=== PATIENT | male | born 1950 | race Caucasian/White ===

== ENCOUNTER 2024-10-18 21:53 | Emergency (ER) | payer OTHER, MEDICARE, SELFPAY ==
--- OUTSIDE RECORDS SUMMARY | 2017-12-03 12:00 | XMS_ITS | Continuity of Care Document ---
Author Organization [facility] Address [address] [place] [address] Phone Care Team Providers Care Photographic Engineer Name Role Phone Giacomo Sparrow MD Unavailable Unavailable Allergies, Adverse Reactions, Alerts Substance Reaction Status Criticality amoxicillin Rash Active No Information Medications Medication Instructions Dosage Effective Dates (start - stop) Status Comments warfarin 5 mg tablet take 1 tablet by or al route every day 5 MG - Active atorvastatin 20 mg tablet take 1 tablet by oral route every day 20 MG - Active metoprolol succinate ER 50 mg tablet,extended release 24 hr take 1 Tablet by oral route 2 times every day 50 MG - Active Procedures Procedure Date Office/Outpatient visit, established pat ient Office/Outpatient visit, established pat ient Betamethasone acet&sod phosp Arthrocentesis, aspiration and/or inject ion; intermediate joint or bursa Office/Outpatient visit, established pat ient Arthrocentesis, aspiration and/or inject ion; intermediate joint or bursa Office/Outpatient visit, established pat ient Office/Outpatient visit, established pat ient Office/Outpatient visit, new patient June Advance Directives Directive Yes / No Effective Date File Name No Information Encounters Encounter Description Practice Location Reason(s) For Visit Diagnoses Date Provider Providers Copied on Encounter Office/Outpat ient visit, established patient [facility] , [address], [place], [id number], [place] tel:[phone] [facility] Carpal tunnel syndrome, right upper limbCarpal tunnel syndrome, left upper limb 8 Kyara Giacomo. [address], [place], [id number], [place]. tel:[phone] Referring Provider: Jo-Ann Begum, [address] [place], [address] . tel:[phone] Office/Outpat ient visit, established patient [facility] , [address], [place], [id number], [place] tel:[phone] [facility] hand pain equally on both sides (chief complaint) Carpal tunnel syndrome, right upper limbCarpal tunnel syndrome, left upper limbCarpal tunnel syndrome, bilateral upper limbs 8 Kyara Giacomo. [address], [place], [id number], [place]. tel:[phone] Referring Provider: Jo-Ann Begum, [address] [place], [address] . tel:[phone] Office/Outpat ient visit, established patient [facility] , [address], [place], [id number], [place] tel:[phone] [facility] hand pain equally on both sides (chief complaint) left elbow pain (chief complaint) Carpal tunnel syndrome, left upper limbCarpal tunnel syndrome, right upper limbCarpal tunnel syndrome, bilateral upper limbs 8 Kyara Giacomo. [address], [place], [id number], [place]. tel:[phone] Referring Provider: Jo-Ann Begum, [address] [place], [address] . tel:[phone] Office/Outpat ient visit, established patient [facility] , [address], [place], [id number], [place] tel:[phone] [facility] hand pain equally on both sides (chief complaint) Carpal tunnel syndrome, bilateral upper limbsLesion of ulnar nerve, bilateral upper limbs 8 Kyara Giacomo. [address], [place], [id number], [place]. tel:[phone] Referring Provider: Jo-Ann Begum, [address] [place], [address] . tel:[phone] Office/Outpat ient visit, established patient [facility] , [address], [place], [id number], [place] tel:[phone] [facility] right wrist pain (chief complaint) Carpal tunnel syndrome, left upper limbCarpal tunnel syndrome, right upper limbLesion of ulnar nerve, left upper limbLesion of ulnar nerve, right upper limbCarpal tunnel syndrome, bilateral upper limbsLesion of ulnar nerve, bilateral upper limbs 8 Kyara Giacomo. [address], [place], [id number], [place]. tel:[phone] Referring Provider: Jo-Ann Begum, [address] [place], [address] . tel:[phone] Office/Outpat ient visit, new patient [facility] , [address], [place], [id number], [place] tel:[phone] [facility] Carpal Tunnel SyndromeCubital tunnel syndrome 5 Kyara Giacomo. [address], [place], [id number], [place]. tel:[phone] Referring Provider: Jo-Ann Begum, [address] [place], [address] . tel:[phone] Family History Family Member Type Diagnosis Age At Onset Mother Problem (finding) Diabetes Payers Payer name Insurance type Covered green party ID Oren gaxiola) Jimbo DASH [id number] Social History Type Description Quantity Date Captured Comments Alcohol Use Details No Caffeine Use Details coffee 2 cups per day Tobacco Use Status Never smoked tobacco 2017 Smoking Status Never smoker Sex Male Vital Signs Date / Time: Height Weight BMI Pulse Rate Blood Pressure Temperature Respiratory Rate Body Surface Area Head Circumference Head Circ. Percentile Wt./Philip. Percentile BMI percentile Pulse Ox Inhaled Ox 5:45 PM 67.00 in 83.915 kg (185.00 lbs) 28.9 7 kg/m eter (2) 60 /min 151/64 mm[Hg] Chief Complaint And Reason For Visit No Information Reason For Referral Reason For Referral No Information History Of Present Illness Encounter Date Complaint History Of Prese nt Illness hand pain equally on both sides Ronnie Holden is a 67 year old male. He presents with pain on the right and left side equally. He indicates the injury occurred at home. Ronnie states that the symptoms began as the result of repetitive motion. The symptoms occur rarely. The pain is described as stabbing and sharp. The symptoms occur at night. He rates his current pain as 0/10. The symptoms are aggravated by daily activities. Ronnie states that the symptoms are relieved by massage and rest. hand pain equally on both sides (comments) The patient comes to my office today for follow-up evaluation. He obtained a steroid injection in bilateral carpal canals during his last visit on 08/13/2017. He comes to my office today for reevaluation. He states that he continues using the splints at night and has no residual paresthesias along median or ulnar nerve distribution. hand pain equally on both sides Ronnie Holden is a 67 year old male. He presents with pain on the right and left side equally. He indicates the injury occurred at home. Ronnie states that the symptoms began as the result of repetitive motion. The symptoms occur intermittently. Currently the patient states that the symptoms are mild-moderate. The pain is described as stabbing. The symptoms occur intermittently. He rates his current pain as 2/10. The symptoms are aggravated by no specific activity. Ronnie states that the symptoms are relieved by rest and brace. left elbow pain Ronnie dodson is a 67 year old male. He presents with pain on the left side. He indicates the injury occurred at home. Ronnie states that the symptoms began as the result of repetitive motion. The symptoms occur intermittently. Currently the patient states that the symptoms are mild-moderate. The pain is described as aching and stabbing. The symptoms occur intermittently. He rates his current pain as 1/10. The symptoms are aggravated by no specific activity. Ronnie states that the symptoms are relieved by rest. hand pain equally on both sides (comments) In summary, the patient has been complaining of bilateral hand numbness and tingling along median nerve distribution. He was diagnosed with bilateral carpal tunnel syndrome. The diagnosis was confirmed with an electrodiagnostic study. The patient has been using wrist splints. He lost the left side splint but he maintains the use of the right splint. He states that his paresthesias remain worse on the left than on the right. His last electrodiagnostic study revealed mild carpal tunnel syndrome. He has episodes of pain during daytime. hand pain equally on both sides Ronnie Holden is a 67 year old male. He presents with pain on the right and left side equally. He indicates the injury occurred at home. Ronnie states that the symptoms began as the result of repetitive motion. The symptoms occur intermittently. Currently the patient states that the symptoms are moderate-severe. The pain is described as stabbing. The symptoms occur at night. He rates his current pain as 3/10. Ronnie states that the symptoms are relieved by elevation, exercise and massage. hand pain equally on both sides (comments) The patient comes to my office today for follow-up evaluation. He had been seen originally on 06/30/2014. At that time, patient was diagnosed with bilateral carpal tunnel syndrome and bilateral cubital tunnel syndrome. He was recommended to undergo conservative management and to obtain an EMG/NCS. The patient was lost to follow-up and came back for reevaluation on 05/08/2017. The patient was recommended to undergo a repeat electrodiagnostic study to assess the progression of the disease. The patient comes back to my office today with the results from the electrodiagnostic study. He states that he has been experiencing pain 3/10 he states that numbness and tingling is no longer present except for at night and not every night. He has been using his splints. right wrist pain Ronnie hamilton is a 66 year old male. He presents with pain on the right side. He indicates the injury occurred at home. Ronnie states that the symptoms began as the result of repetitive motion. The symptoms occur intermittently. Currently the patient states that the symptoms are mild-moderate. The pain is described as aching and stabbing. He rates his current pain as 3/10. The symptoms are aggravated by daily activities. Ronnie states that the symptoms are relieved by rest. right wrist pain (comments) The patient comes to my office today for follow-up evaluation. He has been seen on 06/30/2014 for complaints of bilateral hand numbness and tingling along median and ulnar nerve distribution. He was treated with splints and was recommended to undergo an EMG/NCS. The patient was lost to follow-up and comes to my office today for reevaluation. He states that he stopped using the splints after a while due to lack of improvement. Functional Status Date Functional Assessmen t No Information Instructions Date Instruction Mayco Infor norris At this time, the roxana hanna is doing well. As stated above, he has been advised to stop using the splints and he will be follow-up as needed. If there is any recurrence of symptoms, he should put the splint back on and make an appointment in my office for reevaluation. Related to Carpal tunnel syndrome, left upper limb At this time, the roxana hanna has been advised to stop the use of the wrist splints. He has been advised that if there is any recurrence of symptoms he should put the splints back on and make an appointment in my office for reevaluation. Related to Carpal tunnel syndrome, right upper limb At this point, the p atient she will continue using the splint for an additional 2 months. He will then remove the use of the splints and will have an appointment in my office 10 weeks from today. If the patient has complete resolution of symptoms, he will be able to stop using the splints and be followed as needed. However, if symptoms recur by the time he comes back to my office, the patient might require additional more aggressive treatment which might include but not be limited to surgical intervention. Details regarding surgery will be discussed with the patient if indicated. Related to Carpal tunnel syndrome, right upper limb As stated above, the patient she will continue using the splint for an additional 2 months. He will then remove the use of the splints and will have an appointment in my office 10 weeks from today. If the patient has complete resolution of symptoms, he will be able to stop using the splints and be followed as needed. However, if symptoms recur by the time he comes back to my office, the patient might require additional more aggressive treatment which might include but not be limited to surgical intervention. Details regarding surgery will be discussed with the patient if indicated. Related to Carpal tunnel syndrome, left upper limb At this time, the roxana hanna is a candidate for further conservative management to maximize his chances of recovery without surgery. He will undergo a steroid injection today in the right carpal canal and he will continue using the wrist splints. He will be followed up in 6 weeks for reassessment. Related to Carpal tunnel syndrome, right upper limb At this time, the roxana hanna's left wrist splint will be prescribed again so that he can use it at night. In addition, a steroid injection will be given today in order to maximize the patient's chances of recovery without surgical intervention. He will be followed up in 6 weeks for reassessment. Related to Carpal tunnel syndrome, left upper limb At this time, the roxana hanna will continue on the conservative management with the use of wrist splints at night. He will be follow-up in my office in 6 weeks for reassessment. Related to Carpal tunnel syndrome, bilateral upper limbs At this time, the roxana hanna will continue using the elbow sleeves. He will be follow-up in 6 weeks for reassessment. Related to Lesion of ulnar nerve, bilateral upper limbs At this point, the warren duarte will start again with conservative management and will be sent for an EMG/NCS as soon as possible. He will be followed up once the results of the nerve conduction studies are available for my review. Related to Carpal tunnel syndrome, left upper limb At this point, the p felicia will start again with conservative management and will be sent for an EMG/NCS as soon as possible. He will be followed up once the results of the nerve conduction studies are available for my review. Related to Carpal tunnel syndrome, right upper limb At this point, the p felicia will start again with conservative management and will be sent for an EMG/NCS as soon as possible. He will be followed up once the results of the nerve conduction studies are available for my review. Related to Lesion of ulnar nerve, left upper limb At this point, the p felicia will start again with conservative management and will be sent for an EMG/NCS as soon as possible. He will be followed up once the results of the nerve conduction studies are available for my review. Related to Lesion of ulnar nerve, right upper limb At this time, the roxana hanna is a candidate for surgical intervention. However, before surgery, he should undergo an EMG/NCS to determine the severity of the disease. Once the study has been completed, the patient will have an appointment in my office to go over the results and to plan surgical intervention. He will most likely require to undergo open cubital tunnel release with ulnar nerve transposition on the left side followed by occupational therapy and then the same open cubital tunnel release with ulnar nerve transposition on the right side, also followed by occupational therapy. Related to Cubital tunnel syndrome At this time, the roxana hanna requires an EMG/NCS in her to determine the severity of the disease. He is a candidate for surgical intervention, therefore, once the electrodiagnosis test has been performed, he'll be seen in my office to go over the results and schedule surgery. Once she recovers from carpal tunnel surgery, she will be able to return to his usual activities of daily living hopefully without restrictions. He has been explained that he might have residual permanent numbness along the median nerve distribution due to the chronicity of the disease. He also has been explained that the atrophic changes on the thenar eminence will not recover even with surgery. Related to Carpal Tunnel Syndrome Assessments Type Assessment Date assessment Carpal tunnel syndrome, right up per limb assessment Carpal tunnel syndrome, left upp er limb impression Right carpal tunnel syndrome by history, physical exam as well as EMG/NCS. Currently with excellent resolution with conservative management utilizing wrist splints and steroid injections. Currently with complete resolution of symptoms impression Left mild carpal maria eugenia marii syndrome by history, physical exam as well as EMG/NCS. Currently with excellent response to conservative management using steroid injection and the use of wrist splints. Now with complete resolution of symptoms Patient Care Teams Name Effective Dates (start - stop) Status Members No Information
--- OUTSIDE RECORDS SUMMARY | 2018-03-26 19:00 | XMS_ITS | Continuity of Care Document ---
Author Organization [facility] Address [address] [place] [address] Phone Care Team Providers Care Subassembly Assembler Name Role Phone Dereck LDReynaon Unavailable Unavailable Allergies, Adverse Reactions, Alerts Substance Reaction Status Criticality No Known Allergies Active No Inform ation Medications Medication Instructions Dosage Effective Dates (start - stop) Status Comments WARFARIN SODIUM (unknown strength) Not Available - Active METOPROLOL (unknown strength) Not Available - Active ATORAVASTATIN (unknown strength) Not Available - Active rantatidine (unknown strength) Not Available - Active Procedures Procedure Date DISPENSED GLASSES REFRACTION EYE EXAM, NEW PATIENT FRAMES,PURCHASES SINGLE VISION DISPENSING FEE PATIENT OPTIONS PATIENT OPTIONS Advance Directives Directive Yes / No Effective Date File Name No Information Encounters Encounter Description Practice Location Reason(s) For Visit Diagnoses Date Provider Providers Copied on Encounter [facility], [address], [place], [place], [id number], [place] tel:[phone] Tom CTL/Optic al/Misc No Information 9 Dereckens Garcia. [address], [place], [address], [place]. tel:[phone] [facility], [address], [place], [place], [id number], tel:[phone] Santos decreased vision (chief complaint) PresbyopiaAge-rela felipa nuclear cataract, bilateralVitreous floaters of both eyes 9 Dereck Garcia. [address], [place], [address], [place]. tel: [phone] [facility], [address], [place], [place], [id number], tel:[phone] Santos CTL/Optic al/Misc No Information 9 Dereck Garcia. [address], [place], [address], . tel: [phone] Family History Family Member Type Diagnosis Age At Onset Problem (finding) Family history of Diabe fortino mellitus Payers Payer name Insurance type Covered constitution party ID Authoriza tion(s) No Information Social History Type Description Quantity Date Captured Comments Sex Male Smoking Status No Information Chief Complaint And Reason For Visit No Information Reason For Referral Reason For Referral No Information Plan Of Treatment Date Type Action Status Patient Education Presbyopia: Care Instru ctions completed History Of Present Illness Encounter Date Complaint History Of Prese nt Illness decreased vision 67 y/o male pt in for Decreased vac/o glare and trouble driving at night time w/ GLS c/o trouble reading small print states GLS are not working well for pt c/o floater OU over a year, has noticed floaters move around, not taking gtts at this time Functional Status Date Functional Assessmen t No Information Instructions Date Instruction Additional Infor mation Return in 1 year wit h Jose Harden OD for Complete Exam or sooner if any problems Related to Presbyopia Impression/Plan Related to Presb yopia Impression/Plan Related to Age-r elated nuclear cataract, bilateral Impression/Plan Related to Vitre ous floaters of both eyes Assessments Type Assessment Date No Information Patient Care Teams Name Effective Dates (start - stop) Status Members No Information
[2024-10-18] VITALS (7 sets, daily range): BP systolic 145; BP diastolic 64; PULSE 77; RESP 20; TEMP 38.6; O2SAT 92–95; BMI 27.0
--- NOTE | 2024-10-18 22:23 | CRLHL7_ITS ---
For Patients: As a result of the Cures Act, medical imaging exams and procedure reports are released immediately into your electronic medical record. You may view this report before your referring provider. If you have questions, please contact your health care provider. Indication: Fever. Technique: Chest two views. Comparison: None. Findings/Impression: Cardiac pacemaker. Elevated left hemidiaphragm. Patchy left greater than right lung base opacification may be related to atelectasis, however developing infectious process not definitively excluded in the appropriate clinical context. Left upper lung zone nodular opacity measuring approximately 7 mm may reflect pulmonary nodule. Further characterization with nonemergent CT of the chest recommended. Questionable trace left pleural effusion. No pneumothorax. No acute osseous abnormality. Dictated by Mono White MD @ 10/18/2024 11:39:55 PM (Electronically Signed)
--- NOTE | 2024-10-18 22:24 | ED.FEVER ---
HPI - Fever General Chief Complaint: Fever Stated Complaint: Weakness, Fall Time Seen by Provider: 10/18/24 22:18 History of Present Illness HPI Narrative: Patient is a 74-year-old gentleman who is visiting from [place]. He has not felt himself the last few days. He has been lethargic with fatigue. He does have fever as of tonight of 101.5. He has had no nausea no vomiting no diarrhea no chills. He has no skin breakdown no rash. 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 No major sick contacts. Related Data Home Medications ?Medication ?Instructions ?Recorded ?Confirmed amlodipine 10 mg tablet 10 mg PO DAILY 10/18/24 10/18/24 aspirin 81 mg tablet 81 mg PO DAILY 10/18/24 10/18/24 ezetimibe 10 mg tablet 10 mg PO DAILY 10/18/24 10/18/24 furosemide 40 mg tablet 40 mg PO DAILY 10/18/24 10/18/24 isosorbide mononitrate 120 mg 120 mg PO DAILY 10/18/24 10/18/24 tablet,extended release 24 hr losartan 50 mg tablet 50 mg PO DAILY 10/18/24 10/18/24 magnesium oxide 10/18/24 metoprolol tartrate 25 mg tablet 25 mg PO DAILY 10/18/24 10/18/24 nitroglycerin 0.4 mg sublingual 0.4 mg sublingual Q5-15M PRN 10/18/24 10/18/24 tablet rosuvastatin 40 mg tablet 40 mg PO DAILY 10/18/24 10/18/24 Allergies Allergy/AdvReac Type Severity Reaction Status Date / Time erythromycin base Allergy Unknown Verified 10/18/24 22:22 Review of Systems Status of ROS Reports: 10 or more systems reviewed and unremarkable except as noted in History and below [facility] Medical History (Updated 10/18/24 @ 23:59 by Josué Maria MD) Presence of IVC filter ?Z95.828 - Presence of other vascular implants and grafts (ICD-10) Asthma ?J45.909 - Unspecified asthma, uncomplicated (ICD-10) Pacemaker ?Z95.0 - Presence of cardiac pacemaker (ICD-10) Surgical History (Updated 10/18/24 @ 23:25 by Anh Dang RN) Mechanical heart valve present ?Z95.2 - Presence of prosthetic heart valve (ICD-10) Social History service: No Exam Narrative Exam Narrative: EXAM GENERAL: Patient appears comfortable and well. EYES: No scleral icterus. LYMPH: No supraclavicular or cervical lymphadenopathy. SKIN: Visible skin seen during exam normal or with benign process only. EXT: No dependent lower extremity pedal edema. HEART: 2/6 systolic murmur with prostatic aortic valve noted. LUNGS: Clear to auscultation bilaterally with no crackles or wheezes. ABD: Soft, non tender, non distended. PSYCH: Good eye contact, speech is not pressured. Const Vital Signs, click to edit/add: Vital Signs - 24 hr 10/18/24 22:18 Temperature 101.5 F H Pulse Rate [Right Pulse Oximeter] 77 Respiratory Rate 20 Blood Pressure [Right Upper Arm] 145/64 H Pulse Oximetry 93 Oxygen Delivery Method Room Air Course Course ED Course: CBC comprehensive metabolic panel blood cultures lactate procalcitonin UA chest x-ray pending. COVID influenza RSV swab pending as well. Vital Signs Vital signs: Initial Vital Signs Temperature 101.5 F H 10/18/24 22:18 Temperature Source Temporal Artery Scan 10/18/24 22:18 Pulse Rate 77 10/18/24 22:18 Respiratory Rate 20 10/18/24 22:18 Blood Pressure 145/64 H 10/18/24 22:18 Blood Pressure Mean 91 10/18/24 22:18 Blood Pressure Position Semi-Fowlers 10/18/24 22:18 Pulse Oximetry 93 10/18/24 22:18 Oxygen Delivery Method Room Air 10/18/24 22:18 Vital Signs Temperature 101.5 F H 10/18/24 22:18 Pulse Rate 77 10/18/24 22:18 Respiratory Rate 20 10/18/24 22:18 Blood Pressure 145/64 H 10/18/24 22:18 Pulse Oximetry 93 10/18/24 22:18 Oxygen Delivery Method Room Air 10/18/24 22:18 Temperature 101.5 F H 10/18/24 22:18 Pulse Rate 77 10/18/24 22:18 Respiratory Rate 20 10/18/24 22:18 Blood Pressure 145/64 H 10/18/24 22:18 Pulse Oximetry 93 10/18/24 22:18 Oxygen Delivery Method Room Air 10/18/24 22:18 Medications Administered Medications: Discontinued Medications Generic Name Dose Route Start Last Admin Trade Name Servando PRN Reason Stop Dose Admin Acetaminophen 1,000 mg 10/18/24 22:56 10/18/24 23:27 Acetaminophen 500 Mg Tablet PO 10/18/24 22:57 1,000 mg ONCE ONE Administration MDM - Fever MDM Narrative Medical decision making narrative: Patient is a 74-year-old gentleman comes in with fever and weakness. He is on room air saturating well. He through evaluation with chest x-ray and labs is found have pneumonia. We did send off blood cultures which are pending. He is allergic to amoxicillin. He at this time we placed on Levaquin 500 mg daily. He is on Coumadin his INR was 3.1 yesterday. He will follow-up with me early this week in clinic with repeat on his INR. He also reporting changes in the interim as his daughter is my primary patient has my cell phone number. Lab Data Labs: Lab Results 10/18/24 10/18/24 Range/Units 22:20 22:40 WBC 10.17 (4.50-11.00) K/uL RBC 4.25 L (4.30-5.90) m/uL Hgb 12.2 L (13.5-17.5) gm/dL Hct 37.3 (37.0-53.0) % MCV 88 (80-100) fL MCH 29 (26-34) pg MCHC 33 (32-36) gm/dL RDW Coeff of Nusrat 14.0 (11.5-15.5) % Plt Count 164 (140-440) K/uL Neut % (Auto) 77.1 H (42.0-72.0) % Lymph % (Auto) 13.0 L (20-44) % [place] % (Auto) 8.6 (0.0-11.0) % Eos % (Auto) 0.0 (0.0-7.0) % Baso % (Auto) 0.5 (0.0-3.0) % Neut # (Auto) 7.80 H (1.7-7.0) K/uL Lymph # (Auto) 1.30 (0.90-2.90) K/uL [place] # (Auto) 0.90 (0.00-0.90) K/UL Eos # (Auto) 0.00 (0.00-0.50) K/uL Baso # (Auto) 0.05 (0.00-0.30) K/uL Abs Immat Gran (auto) 0.08 (0.00-0.30) K/uL Imm/Tot Granulo (auto) 0.8 % Sodium 133 L (135-149) mmol/L Potassium 4.5 (3.6-5.1) mmol/L Chloride 103 (96-114) mmol/L Carbon Dioxide 23 (20-32) mmol/L Anion Gap 7 (7-15) mEq/L BUN 30 (7-30) mg/dL Creatinine 1.4 (0.5-1.5) mg/dL Estimated Creat Clear 43.94 Estimated GFR 53 ml/min Glucose 135 H (60-115) mg/dL Lactate 1.0 (0.5-1.9) mmol/L Calcium 9.2 (8.4-10.6) mg/dL Total Bilirubin 1.0 (0.1-1.5) mg/dL AST 32 (12-35) U/L ALT 19 (4-50) U/L Alkaline Phosphatase 65 (40-150) U/L Total Protein 7.8 (6.0-8.3) g/dL Albumin 4.3 (3.3-5.0) g/dL Procalcitonin 0.13 (<0.50) ng/mL Urine Color Yellow (Yellow) Urine Appearance Clear (Clear) Urine pH 6.0 (5.0-8.5) Ur Specific [place] 1.020 (1.000-1.030) Urine Protein 2+ A (Negative) Urine Glucose (UA) Negative (Negative) Urine Ketones Trace A (Negative) Urine Blood 2+ A (Negative) Urine Nitrite Negative (Negative) Urine Bilirubin Negative (Negative) Urine Urobilinogen 0.2 (0.2-1.0) Ur Leukocyte Esterase Negative (Negative) Urine RBC 2-5 A (0-2) Urine WBC 0-2 (0-5) Ur Squamous Epith Cells Few (None-Few) Urine Bacteria None (None) SARS-CoV-2 (PCR) Negative SARS-CoV-2 (Negative) Influenza Type A (PCR) Negative PCR FLU A (Negative) Influenza Type B (PCR) Negative PCR FLU B (Negative) RSV (PCR) Negative PCR RSV (Negative) Discharge Plan Discharge Clinical Impression: Pneumonia Patient Disposition: Home, Self-Care Condition: Stable Instructions: Community Acquired Pneumonia (ED) Additional Instructions: Levaquin as directed Tylenol 1000 mg 3 times a day as needed. Rest Fluids Contact Dr. Maria for an INR/possible clinic visit on Sunday. Activity Level: No Restrictions Discharge Diet: Regular Prescriptions: No Action isosorbide mononitrate 120 mg tablet extended release 24 hr 120 mg PO DAILY losartan 50 mg tablet 50 mg PO DAILY furosemide 40 mg tablet 40 mg PO DAILY amlodipine 10 mg tablet 10 mg PO DAILY nitroglycerin 0.4 mg tablet, sublingual 0.4 mg sublingual Q5-15M PRN Rx Instructions: do not exceed 3 doses per episode aspirin 81 mg tablet 81 mg PO DAILY ezetimibe 10 mg tablet 10 mg PO DAILY rosuvastatin 40 mg tablet 40 mg PO DAILY metoprolol tartrate 25 mg tablet 25 mg PO DAILY Rx Instructions: Take if systolic BP > 100 magnesium oxide Stand Alone Forms: [employer] Info Instructions
[2024-10-18 22:36] LABS: Appearance Urine Clear (Clear)
[2024-10-18 22:57] LABS: Lactate* 1.0 mmol/L (0.5-1.9)
[2024-10-18 23:25] LABS: Albumin* 4.3 g/dL (3.3-5.0); Chloride* 103 mmol/L (96-114); Sodium* 133 mmol/L (135-149)
[2024-10-18 23:26] LABS: Potassium* 4.5 mmol/L (3.6-5.1)
[2024-10-18] MEDS: ACETAMINOPHEN 500 MG TABLET 1000 MG PO (23:27)
[2024-10-18 23:28] LABS: Alanine Aminotransferase* 19 U/L (4-50); Alkaline Phosphatase* 65 U/L (40-150); Anion Gap 7 mEq/L (7-15); Aspartate Amino Transferase* 32 U/L (12-35); Bilirubin Total* 1.0 mg/dL (0.1-1.5); Blood Urea Nitrogen* 30 mg/dL (7-30); Carbon Dioxide* 23 mmol/L (20-32); Creatinine* 1.4 mg/dL (0.5-1.5); Est. Creatinine Clearance* 43.94; Estimated Glomerular Filt Rate 53 ml/min; Total Protein* 7.8 g/dL (6.0-8.3)
[2024-10-18 23:29] LABS: Calcium* 9.2 mg/dL (8.4-10.6); Glucose* 135 mg/dL (60-115)
[2024-10-18 23:42] LABS: Hematocrit* 37.3 % (37.0-53.0); Hemoglobin* 12.2 gm/dL (13.5-17.5); Immature Granulocytes Abs Auto 0.08 K/uL (0.00-0.30); Immature Granulocytes Pct Auto 0.8 %; Mean Corpuscular HGB Conc 33 gm/dL (32-36); Mean Corpuscular Hemoglobin 29 pg (26-34); Mean Corpuscular Volume 88 fL (80-100); RDW Coefficient of Variation % 14.0 % (11.5-15.5); Red Blood Count* 4.25 m/uL (4.30-5.90); White Blood Count* 10.17 K/uL (4.50-11.00)
[2024-10-18 23:45] LABS: Procalcitonin* 0.13 ng/mL (<0.50)
[2024-10-18 23:46] LABS: Lymphocytes Absolute Auto 1.30 K/uL (0.90-2.90)
[2024-10-18 23:47] LABS: PCR FLU A Negative PCR FLU A (Negative); PCR FLU B Negative PCR FLU B (Negative); PCR RSV Negative PCR RSV (Negative); SARS PCR* Negative SARS-CoV-2 (Negative); Slide Review Reflex No
--- OUTSIDE RECORDS SUMMARY | 2024-10-19 00:13 | XMS_ITS | Clinical Summary ---
Author Organization [facility] Address [address] [place] [address] Care Team Providers Care Verification Lead Name Role Phone Edwin Al) Primary Care Provider [phone] Source Comments NOTE: The information displayed by Care Everywhere is extracted from the complete medical record and may not identify all current or past patient conditions.[facility] Immunizations Name Administration Dates Next Due COVID-19 Moderna, External Administration 09/22/2021,12/17/2020,04/14/2020,03/17 Social History Tobacco Use Types Packs/Day Years Used Date Smoking Tobacco: Never Assessed Sex and Gender Information Value Date Recorded Sex Assigned at Not on file Gender Identity Not on file Sexual Orientation Not on file Plan of Treatment Health Maintenance Due Date Last Done Comments YANNICK SCREEN 06/17/1968 TDAP VACCINE (1 - Tdap) 06/17/1970 SHINGLES VACCINE (1) 06/17/2001 PCV20 VACCINE (1 - PCV20) 06/17/2016 COVID-19 VACCINE (KP) (2 - Moderna (>=12yrs)) 11/17/2021 09/22/2021, 12/17/2020, 04/14/2020, Additional history exists FLU VACCINE (1) 11/12/2024 Care Teams Verification Lead Relationship Specialty Start Date End Date Edwin Al) [address] [place] [address] [phone] (Work) [phone] (Fax) PCP - General 01/25/23
--- OUTSIDE RECORDS SUMMARY | 2024-10-19 00:14 | XMS_ITS | Clinical Summary ---
Author Organization [facility] Address [address] [place] [id number] Care Team Providers Care Public Health Nurse Name Role Phone Alley Hamilton MD Primary Care Provider Allergies Active Allergy Reactions Criticality Noted Date Comments Amoxicillin Rash Medium 01/11/2016 Medications warfarin (COUMADIN) 5 mg tablet Take 5 mg by mouth daily. Active atorvastatin (LIPITOR) 20 mg tablet Take 20 mg by mouth daily. Active metoprolol (LOPRESSOR) tablet Take 50 mg by mouth 2 times a day. Active ranitidine (ZANTAC) 150 mg tablet Take 150 mg by mouth as needed for Heartburn. Active Active Problems Problem Noted Date Diagnosed Date Dizziness 01/11/2016 Family History Medical History Relation Name Comments High Blood Pressure Other Relation Name Status Comments Mother Other Social History Tobacco Use Types Packs/Day Years Used Date Smoking Tobacco: Never Smokeless Tobacco: Never Alcohol Use Standard Drinks/Week Comments Not Currently 0 (1 standard drink = 0.6 oz pur e alcohol) Sex and Gender Information Value Date Recorded Sex Assigned at Not on file Legal Sex Male 07:10 PDT Gender Identity Not on file Sexual Orientation Not on file Last Filed Vital Signs Vital Sign Reading Time Taken Comments Blood Pressure 151/61 02/18/2016 1113 PST Pulse - - Temperature - - Respiratory Rate - - Oxygen Saturation - - Inhaled Oxygen Concentration - - Weight 82.6 kg (182 lb) 02/18/2016 1113 PST Height 170.2 cm (5' 7) 02/18/2016 1113 PST Body Mass Index 28.51 02/18/2016 1113 PST Plan of Treatment Not on file Insurance [employer] Care Teams Public Health Nurse Relationship Specialty Start Date End Date Alley Hamilton MD [id number] [phone] PCP - General 08/28/08
== END 2024-10-19 00:54 | disposition home or self-care (01) ==
LOC: ED 10-19 00:12
PROVIDERS: Emergency Provider Internal Medicine
DX: J18.9 Pneumonia, unspecified organism (principal)
CPT/HCPCS: 36415; 71046; 80053; 81001; 81003; 83605; 84145; 85025; 87040; 87631; 99283; 99284; A9270

== ENCOUNTER 2024-10-21 09:57 | Outpatient (CLI) | payer MEDICARE, OTHER, SELFPAY | END 2024-10-21 09:58 | disposition home or self-care (01) | LOC: NFLDREF 10:00 | PROVIDERS: Visit Provider Internal Medicine | DX: Z95.2 Presence of prosthetic heart valve (principal) | CPT/HCPCS: 85610 ==